=== PATIENT | male | born 1990 | race Caucasian/White ===

== ENCOUNTER → 2018-04-06 | Outpatient (REF) | payer SELFPAY ==
[2018-04-06 10:34] LABS: PLATELET COUNT, AUTOMATED 274 K/uL (150-450)
== END ==
PROVIDERS: ATTEND Nurse Practitioner Family
DX: R19.7 Diarrhea, unspecified (principal); E86.0 Dehydration
CPT/HCPCS: 82040; 82247; 82310; 82374; 82435; 82565; 82947; 84075; 84132; 84155; 84295; 84450; 84460; 84520; 85025

== ENCOUNTER 2018-07-19 20:58 | Emergency (ER) | payer SELFPAY ==
[2018-07-19] MEDS ORDERED: DIPHTH/TETANUS/ACEL. PERTUSSIS IM ONLY ONE (21:10)
[2018-07-19] MEDS ORDERED: ONDANSETRON 4 MG/2 ML VIAL IVP ONE (21:20)
[2018-07-19] MEDS ORDERED: fentaNYL CITR 100 MCG/2 ML AMP IVP ONE ×2 (21:20→23:55)
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
[2018-07-19] MEDS ORDERED: fentaNYL CITR 100 MCG/2 ML AMP ONE (22:45)
[2018-07-19] MEDS ORDERED: ceFAZolin 1 GM VIAL IVP ONE (22:55)
[2018-07-19 23:30] VITALS: BP 115/59
[2018-07-20] MEDS ORDERED: NS(*) 0.9% 1000 ML BAG 1,000 ML IV ONE (00:10)
== END 2018-07-20 00:06 | disposition short-term general hospital (02) ==
LOC: ER 21:13
DX: S72.334 Nondisplaced oblique fracture of shaft of right femur (principal); S71.101A Unspecified open wound, right thigh, initial encounter
CPT/HCPCS: 73502; 73552; 90471; 90715; 96361; 96374; 96375; 96376; 99285; J0690; J2405; J3010; J7030

== ENCOUNTER → 2018-07-19 | Outpatient (CLI) | payer SELFPAY | LOC: AMB 20:43 | PROVIDERS: ATTEND Nurse Practitioner | DX: S71.101A Unspecified open wound, right thigh, initial encounter (principal); W32.0XXA Accidental handgun discharge, initial encounter | CPT/HCPCS: A0425; A0427 ==

== ENCOUNTER → 2018-07-19 | Outpatient (CLI) | payer SELFPAY | LOC: AMB 23:40 | PROVIDERS: ATTEND Nurse Practitioner | DX: S72.91XB Unspecified fracture of right femur, initial encounter for open fracture type I or II (principal); W34.00XA Accidental discharge from unspecified firearms or gun, initial encounter | CPT/HCPCS: A0425; A0426 ==